=== PATIENT | male | born 1990 | race Hispanic/Latino ===

== ENCOUNTER → 2025-01-03 | Outpatient (CLI) | payer BC ==
--- NOTE | 2025-01-04 01:41 | HMCIMG ---
EXAM: MR Lumbar Spine Without Intravenous Contrast CLINICAL HISTORY: M54.50 ??? Low back pain, unspecified TECHNIQUE: Multiplanar, multisequence magnetic resonance imaging of the lumbar spine performed without intravenous contrast. CONTRAST: None. COMPARISON: None provided. FINDINGS: Vertebrae: Vertebral body heights maintained. Multilevel anterior and posterior marginal osteophytes noted. Focal L2 vertebral body lipohaemangioma identified. Endplate signal changes at L5???S1 consistent with degenerative Modic type II changes. Alignment: Grade I anterior listhesis of L5 over S1 secondary to bilateral pars interarticularis defects. Remaining alignment anatomic. Spinal Cord and Cauda Equina: Conus medullaris terminates at the L1 level and appears normal. No abnormal intradural signal or mass. Intervertebral Discs: Multilevel disc desiccation changes with Pfirrmann grade III???IV degeneration, most advanced at L5???S1 (grade IV). Annular fissure seen at multiple levels. Findings by Level: L1???L2: Disc height and hydration preserved. No canal or foraminal stenosis. L2???L3: Right posterior paracentral disc protrusion causing indentation of the anterior thecal sac without compressive neuropathy. L3???L4: Mild disc desiccation without bulge or stenosis. L4???L5: Disc desiccation with mild diffuse bulge but no significant canal or foraminal narrowing. L5???S1: Diffuse disc bulge with posterior central high-intensity zone and annular fissure causing mild anterior thecal sac indentation. No evidence of compressive neuropathy. Facet Joints: Mild hypertrophy at lower lumbar levels. Paraspinal Soft Tissues: Unremarkable. 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 * Grade I anterolisthesis of L5 over S1 with bilateral pars interarticularis defects. * Right paracentral disc protrusion at L2???L3 causing thecal sac indentation without neural compression. * Diffuse disc bulge at L5???S1 with annular fissure and mild anterior thecal sac indentation, no compressive neuropathy. * L2 vertebral body lipohaemangioma. * Radiologic???Clinical Correlation: Findings consistent with mechanical low back pain secondary to multilevel lumbar spondylosis and spondylolytic listhesis at L5???S1 (Meyerding grade I). Recommend clinical correlation for radiculopathy and follow-up imaging if symptoms progress. /Edgar
== END | disposition home or self-care (01) ==
LOC: RAH 11:21
PROVIDERS: ATTEND Nurse Practitioner Family
DX: M51.360 Other intervertebral disc degeneration, lumbar region with discogenic back pain only (principal); M51.379 Other intervertebral disc degeneration, lumbosacral region without mention of lumbar back pain or lower extremity pain; M47.816 Spondylosis without myelopathy or radiculopathy, lumbar region; M51.26 Other intervertebral disc displacement, lumbar region; M43.17 Spondylolisthesis, lumbosacral region; D18.03 Hemangioma of intra-abdominal structures; Q05.7 Lumbar spina bifida without hydrocephalus
CPT/HCPCS: 72148